=== PATIENT | male | born 1965 | race African-American/Black ===

== ENCOUNTER → 2022-08-31 | Outpatient (CLI) | payer BC ==
[~2022-08-31] MED LIST: CRESTOR20 MG PO; CYCLOBENZAPRINE5 MG; FLOMAX0.4 MG PO; IOPAMIDOL 370 MG/ML 100 ML INFUS..BTL INJ ONE; NORCO 7.5-3251 EACH; PROTONIX20 MG PO; ULTRAM 50MG50 MG; ULTRAM 50MG50 MG PO; [UNRECOGNIZED DRUG - CODE] PO
== END ==
LOC: CT 13:22
PROVIDERS: ATTEND Internal Medicine Gastroenterology
DX: R10.84 Generalized abdominal pain (principal); R11.0 Nausea; R14.0 Abdominal distension (gaseous)
CPT/HCPCS: 74160; Q9967

== ENCOUNTER → 2024-03-02 | Day surgery (SDC) | payer BC ==
[~2024-03-02] MED LIST changes: +DEXAMETHASONE SOD PHOS INJ 4 MG/ML SDV ONE; +FENTANYL CITRATE/PF 100MCG/2 ML INJ ONE; +HYDRALAZINE HCL 20 MG/ML VIAL ONE; +HYDROCODONE/APAP 5MG-325MG TAB ONE; -IOPAMIDOL 370 MG/ML 100 ML INFUS..BTL INJ ONE; +KETOROLAC TROMETHAMINE 30 MG/ML VIAL ONE; +LIDOCAINE HCL 2% LOCAL INJ 5 ML SDV VIAL INJ ONE; +MIDAZOLAM HCL 2 MG/2 ML VIAL ONE; +ONDANSETRON HCL INJ 2MG/ML 2ML 2 MG/ML VIAL ONE; +PROPOFOL IV EMULSION 10 MG/ML 20 ML VIAL ONE; +SEVOFLURANE INHAL SOLN 250 ML PEN BTL ONE
[2024-03-02] MEDS: LACTATED RINGER'S 1,000 ML ONE (06:09)
[2024-03-02] MEDS: HYDROCODONE/APAP 5MG-325MG TAB PO ONE (10:10)
[2024-03-02] MEDS: HYDRALAZINE HCL 20 MG/ML VIAL IV ONE ×2 (10:45→10:50)
[2024-03-02 11:10] VITALS: BP 173/98; PULSE 50; RESP 17; O2SAT 99
== END | disposition home or self-care (01) ==
LOC: OR 06:13
PROVIDERS: ATTEND Specialist
DX: S83.221A Peripheral tear of medial meniscus, current injury, right knee, initial encounter (principal); M25.761 Osteophyte, right knee; M23.41 Loose body in knee, right knee; E78.5 Hyperlipidemia, unspecified; F17.210 Nicotine dependence, cigarettes, uncomplicated; Z01.810 Encounter for preprocedural cardiovascular examination; Z79.899 Other long term (current) drug therapy
CPT/HCPCS: 29881; 93005; J0360; J0690; J7121; J1100; J1885; J2001; J2250; J2405